=== PATIENT | male | born 1945 | race Caucasian/White ===

== ENCOUNTER → 2016-10-29 | Outpatient (CLI) | payer MEDICARE ==
[~2016-10-29] MED LIST: ISOVUE-370 76% 100ML VIAL (Q9967) As Ordered ONE
--- NOTE | 2016-10-29 16:41 | REP ---
CT study of the chest with IV contrast: History: Pulmonary nodule. Abnormal pulmonary function study. Comparison chest CT study is from July 07, 2016. Comparison CT is also from June 03, 2016. CT contrast dose: 75 ml of Isovue [address] findings: There is moderate cardiomegaly with pacemaker leads as before. No pleural effusion is seen. The central pulmonary arterial tree is slightly dilated. No filling defect is seen to suggest pulmonary embolus. Thoracic aorta enhances homogeneously. There is left coronary artery calcification or stent material. There are multiple small hepatic cysts. No adrenal lesion is seen. There are scattered small stable lymph nodes in the mediastinum. There is a mild mosaic pattern of parenchymal alveolar density in the lung fan. This may be a reflection of the patient's CHF. It is essentially unchanged. No significant pulmonary parenchymal nodule is seen. The pleural density described previously in the left posteromedial lung gutter is again seen unchanged. Its appearance suggests a pleural plaque. Impression: Stable CT findings. Signed by Mark Ahn MD 10/29/2016 09:47 P
== END ==
LOC: M RAD 10:46
PROVIDERS: ATTEND Internal Medicine Cardiovascular Disease
DX: R94.2 Abnormal results of pulmonary function studies (principal); R91.1 Solitary pulmonary nodule
CPT/HCPCS: 71260; Q9967